=== PATIENT | female | born 1955 | race Caucasian/White ===

== ENCOUNTER → 2018-04-20 09:02 | Outpatient (CLI) | payer OTHER, SELFPAY ==
--- NOTE | 2018-04-20 | DI.CT.S_ITS ---
PROCEDURE: CT SINUS SCREEN WO CON INDICATIONS: CHRONIC SINUSITIS TECHNIQUE: Noncontrast 3.0 mm axial images acquired from the frontal sinuses to the mid-sella, with coronal and sagittal reformats. For radiation dose reduction, the following was used: automated exposure control, adjustment of mA and/or kV according to patient size. COMPARISON: None. FINDINGS: Image quality: Excellent. Maxillary Sinuses: No bony remodeling or destruction. Sinuses are clear. Ethmoid Air Cells: No bony remodeling or destruction. Sinuses are clear. Sphenoid Sinuses: No bony remodeling or destruction. Sinuses are clear. Frontal Sinuses: No bony remodeling or destruction. Sinuses are clear. Ostiomeatal Complexes: Ostiomeatal complexes are patent. No Adelita cells. Miscellaneous: Visualized intra-orbital contents are normal. No freda bullosa or paradoxical turbinate curvature. No nasal septal deviation. IMPRESSION: No active sinusitis. Dictated by: Benedicto Hinton M.D. on 04/20/2018 at 10:56 Approved by: Benedicto Hinton M.D. on 04/20/2018 at 10:57
== END ==
PROVIDERS: Visit Provider Otolaryngology
DX: J32.8 Other chronic sinusitis (principal); J34.89 Other specified disorders of nose and nasal sinuses; J34.2 Deviated nasal septum
CPT/HCPCS: 70486

== ENCOUNTER 2021-09-23 19:17 | Observation (INO) | payer OTHER, SELFPAY ==
[2021-09-23 19:27] VITALS: BP 161/83; PULSE 100; RESP 18; TEMP 36.6; O2SAT 95; BMI 36.6
--- NOTE | 2021-09-23 19:30 | DI.RAD.S_ITS ---
PROCEDURE: XR CHEST 1V INDICATIONS: chest pain TECHNIQUE: One view of the chest was acquired. COMPARISON: None. FINDINGS: Surgical changes and devices: None. Lungs and pleura: Lungs are clear. No pleural effusions or pneumothorax. Mediastinum: Mediastinal contours appear normal. Heart size is normal. Bones and chest wall: No suspicious bony lesions. Overlying soft tissues appear unremarkable. IMPRESSION: 1. No acute cardiopulmonary disease. Dictated by: Cullen Roldan M.D. on 09/23/2021 at 20:42 Approved by: Cullen Roldan M.D. on 09/23/2021 at 20:43
[2021-09-23 20:03] LABS: Add Manual Diff / Slide Review NO; Basophils Absolute Auto 0 /uL (0-100); Basophils Percent Auto 0.4 % (0-2); Eosinophils Absolute Auto 100 /uL (0-450); Eosinophils Percent Auto 1.6 % (2-4); Hematocrit 40.1 % (36-46); Hemoglobin 13.5 g/dL (12.0-16.0); Lymphocytes Absolute Auto 1400 /uL (1100-4500); Lymphocytes Percent Auto 31.5 % (25-40); Mean Corpuscular HGB Conc 33.8 % (30-36); Mean Corpuscular Hemoglobin 28.1 PG (26-34); Monocytes Absolute Auto 400 /uL (0-900); Monocytes Percent Auto 8.8 % (3-14); Neutrophils Absolute Auto 2600 /uL (1500-7000); Neutrophils Percent Auto 57.7 % (50-75); Platelet Count 184 X10^3/uL (150-400); Red Blood Cell Count 4.83 X10^6/uL (4.0-5.2); White Blood Cell Count 4.6 X10^3/uL (4.5-11.0)
--- NOTE | 2021-09-23 20:04 | ED_ITS ---
HPI - Chest Pain General Chief Complaint: Chest Pain Stated Complaint: sent for cardiac workup Time Seen by Provider: 09/23/21 19:52 Source: patient Mode of arrival: Ambulatory Limitations: no limitations History of Present Illness HPI narrative: Patient here for 2 days of left-sided chest pressure radiating to the left arm and arm pit. Has had diaphoresis. Greatest intensity 7/10. Currently 5/10. History of high blood pressure. Family history of coronary artery disease including grandmother with triple bypass at her age. Had stress test in early 1999. No recent cough cold or fever. No abdominal or back pain. Not worse with movement. Not reproducible on palpation Related Data Home Medications Medication Instructions Recorded Confirmed HYDROCHLOROTHIAZIDE (Hydrodiuril / 10 mg PO Q DAY ##0 08/31/09 09/23/21 Hctz) amlodipine 5 mg tablet 5 mg PO DAILY 09/23/21 09/23/21 celecoxib 200 mg capsule 200 mg PO DAILY 09/23/21 09/23/21 Previous Rx's Medication Instructions Recorded methocarbamol 500 mg tablet 500 mg PO BID PRN muscle spasm #10 01/05/21 tabs Allergies Allergy/AdvReac Type Severity Reaction Status Date / Time codeine AdvReac causes Verified 01/20/18 09:25 itching, hives and hyperactivity Sulfa (Sulfonamide AdvReac itching, Verified 01/20/18 09:25 Antibiotics) hives and hyperactivity Review of Systems Review of Systems Narrative: GENERAL: Denies chills, fatigue, malaise, fever, positive sweats. HEENT: Denies sinus pain, ear pain, sore throat RESPIRATORY: Denies dyspnea, cough CARDIOVASCULAR: Positive chest pain, negative palpitations GASTROINTESTINAL: Denies nausea, vomiting, abdominal pain : Denies dysuria, frequency, hematuria MUSCULOSKELETAL: denies muscle or bony pain SKIN: Denies rash, skin lesions NEUROLOGIC: Denies weakness, numbness ROS Unobtainable: All systems reviewed & are unremarkable except as noted in HPI and below Patient History Medical History Allergies Anemia (~1969) Ankle pain (~2019) Arthritis Asthma (~1986) Carpal tunnel syndrome (~1999) Chronic back pain (~2008) Colon polyps (~2004) Eczema (~1980) Foot pain (~2019) Hypertension (~2001) Recurrent sinusitis (~1994) Shoulder pain (~2008) Surgical History Anesthesia History of colonoscopy Family History Father Congestive heart failure Hypertension Hyperlipidemia Stroke History of heart attack Mother Cancer Brother Cancer Grandfather Cancer Grandmother Breast cancer Grandfather History of heart disease Grandmother History of heart disease Social History household members: spouse Smoking Status: Never smoker alcohol intake: never Smoking Status: Never smoker alcohol intake frequency: 0-2 drinks per day Substance Use Type: does not use Exam Narrative Exam Narrative: GENERAL: in no distress, not toxic not dyspneic HEAD: Normocephalic. EYES: Pupils equal round No scleral icterus. ENT: Mucous membranes moist. NECK: Trachea midline. CARDIOVASCULAR: Regular rate and rhythm without murmurs RESPIRATORY: Clear to auscultation. Breath sounds equal bilaterally. No wheezes, rales, or rhonchi. GASTROINTESTINAL: Abdomen soft, non-tender EXTREMITIES: No gross deformities. BACK: No flank tenderness. NEURO: AOx4. SKIN: Warm and dry PSYCH: Not anxious, is cooperative Initial Vital Signs Initial Vital Signs: Vital Signs Temperature 97.9 F 09/23/21 19:27 Pulse Rate 100 H 09/23/21 19:27 Respiratory Rate 18 09/23/21 19:27 Blood Pressure 161/83 H 09/23/21 19:27 Pulse Oximetry 95 09/23/21 19:27 Oxygen Delivery Method 09/23/21 19:27 Course Course Course Narrative: No new issues during course of stay Decision to Admit Date: 09/23/21 Decision to Admit time: 20:08 Orders Ordered: ED Orders 09/23/21 19:30 XR chest 1V Stat Complete Blood Count AUTO DIFF Stat Comprehensive Metabolic Panel Stat D Dimer Stat Lipase Stat Magnesium Stat NT-proBNP (BNP-Adult 18+) Urgent Troponin & CK Cardiac Panel Stat 09/23/21 19:32 EKG-12 Lead Stat 09/23/21 20:29 EC echo doppler complete Urgent Exercise treadmill NON NUC Urgent COVID19 -Nasal RAPID/Pre-Proc Stat 09/23/21 20:30 Education, smoking cessation ONGOING 09/23/21 20:38 Consult to Dietitian, Adult Routine 09/24/21 01:30 Troponin I Q6H 09/24/21 05:00 Lipid Panel Routine Prothrombin Time INR Routine 09/24/21 07:30 Troponin I Q6H Al Hydrox/Mg Hydrox/Simethicone (Mag Hydrox/Alum/Simeth 30 Ml Udc) 30 ml PO Q6HR PRN PRN Reason: Dyspepsia Aspirin (Aspirin Ec 325 Mg Tablet) 325 mg PO DAILY [facility] Enoxaparin Sodium (Enoxaparin 40 Mg/0.4 Ml Syringe) 40 mg SUBCUT DAILY [facility] Lisinopril (Lisinopril 20 Mg Tablet) 20 mg PO DAILY [facility] Methocarbamol (Methocarbamol 500 Mg Tablet) 500 mg PO BID PRN PRN Reason: muscle spasm Morphine Sulfate (Morphine 2 Mg/Ml Inj) 2 mg IV Q5MIN PRN PRN Reason: Chest Pain Nitroglycerin (Nitroglycerin 0.4 Mg Sl Tab) 0.4 mg SL [id number] PRN PRN Reason: Chest Pain Ondansetron HCl (Ondansetron 4 Mg/2 Ml Inj) 4 mg IV Q4HR PRN PRN Reason: Nausea And Vomiting Discontinued Medications Aspirin (Aspirin 81 Mg Chew Tab) 324 mg PO NOW ONE Stop: 09/23/21 20:05 Last Admin: 09/23/21 20:19 Dose: 324 mg Documented By: TANYA Metoprolol Tartrate (Metoprolol Tartrate 5 Mg/5 Ml Inj) 5 mg IV Q5M PRN PRN Reason: Hypertension Stop: 09/23/21 21:56 Nitroglycerin (Nitroglycerin Oint 1 Inch/Gm Oint...G.) 0.5 inch TOP NOW ONE Stop: 09/23/21 20:05 Last Admin: 09/23/21 20:19 Dose: 0.5 inch Documented By: TANYA Non-Formulary Medication (Hydrochlorothiazide (Hydrodiuril / Hctz)) 10 mg PO Q DAY [facility] Ondansetron HCl (Ondansetron 4 Mg/2 Ml Inj) 4 mg IV Q4HR PEÑA Last Admin: 09/23/21 22:31 Dose: Not Given Documented By: MORENITA Reevaluation(s) Reevaluation #1: Reviewed results with patient. Currently chest pain free Consultations Consultation #1: Reviewed with hospitalist, agrees for admit. Time: 20:45 Vital Signs Vital signs: Vital Signs - 8 hr 09/23/21 19:27 09/23/21 20:27 09/23/21 20:32 Temperature 97.9 F Pulse Rate 100 H 88 Respiratory Rate 18 16 Blood Pressure 161/83 H 181/85 H Pulse Oximetry 95 99 98 Oxygen Delivery Method Room Air Room Air Room Air MDM - Chest Pain Differential Diagnosis Differential diagnosis: Likely stable angina, unstable angina pectoris, atypical chest pain, st elevation myocardial infarction and chest pain Lab Data Result diagrams: 09/23/21 19:30 09/23/21 19:30 Labs: Lab Results 09/23/21 09/23/21 09/23/21 Range/Units 19:30 19:30 19:30 WBC 4.6 (4.5-11.0) X10^3/uL RBC 4.83 (4.0-5.2) X10^6/uL Hgb 13.5 (12.0-16.0) g/dL Hct 40.1 (36-46) % MCV 83.0 (80-100) fL MCH 28.1 (26-34) PG MCHC 33.8 (30-36) % RDW 14.0 (11.6-14.8) % Plt Count 184 (150-400) X10^3/uL Neut % (Auto) 57.7 (50-75) % Lymph % (Auto) 31.5 (25-40) % [place] % (Auto) 8.8 (3-14) % Eos % (Auto) 1.6 L (2-4) % Baso % (Auto) 0.4 (0-2) % Neut # (Auto) 2600 (3978-9545) /uL Lymph # (Auto) 1400 (2800-3942) /uL [place] # (Auto) 400 (0-900) /uL Eos # (Auto) 100 (0-450) /uL Baso # (Auto) 0 (0-100) /uL D-Dimer < 500 (<500) ng/ml Sodium 138 (137-145) mmol/L Potassium 3.4 (3.4-5.1) mmol/L Chloride 101 (98-107) mmol/L Carbon Dioxide 31 (22-32) mmol/L BUN 16 (7-17) mg/dL Creatinine 0.78 (0.52-1.04) mg/dL Estimated GFR > 60 (>60) mL/min BUN/Creatinine Ratio 20.5 (6-22) Glucose 139 H (80-110) mg/dL Calcium 9.3 (8.4-10.2) mg/dL Magnesium 1.8 (1.6-2.3) mg/dL Total Bilirubin 0.7 (0.2-1.3) mg/dL AST 63 H (14-36) IU/L ALT 70 H (<35) IU/L Alkaline Phosphatase 102 (38-126) U/L Total Creatine Kinase 50 (30-135) U/L CK-MB (CK-2) TNP CK-MB (CK-2) Rel Index TNP Troponin I < 0.012 (0.01-0.034) ng/mL NT-Pro-B Natriuret Pep (<125) pg/mL Total Protein 7.9 (6.3-8.2) g/dL Albumin 4.3 (3.5-5.0) g/dL Globulin 3.6 (1.7-4.1) g/dL Albumin/Globulin Ratio 1.2 (1.0-2.8) Lipase 61 (23-300) U/L SARS-CoV-2 (PCR) (Negative) 09/23/21 09/23/21 Range/Units 19:30 20:29 WBC (4.5-11.0) X10^3/uL RBC (4.0-5.2) X10^6/uL Hgb (12.0-16.0) g/dL Hct (36-46) % MCV (80-100) fL MCH (26-34) PG MCHC (30-36) % RDW (11.6-14.8) % Plt Count (150-400) X10^3/uL Neut % (Auto) (50-75) % Lymph % (Auto) (25-40) % [place] % (Auto) (3-14) % Eos % (Auto) (2-4) % Baso % (Auto) (0-2) % Neut # (Auto) (3531-6616) /uL Lymph # (Auto) (6085-9276) /uL [place] # (Auto) (0-900) /uL Eos # (Auto) (0-450) /uL Baso # (Auto) (0-100) /uL D-Dimer (<500) ng/ml Sodium (137-145) mmol/L Potassium (3.4-5.1) mmol/L Chloride (98-107) mmol/L Carbon Dioxide (22-32) mmol/L BUN (7-17) mg/dL Creatinine (0.52-1.04) mg/dL Estimated GFR (>60) mL/min BUN/Creatinine Ratio (6-22) Glucose (80-110) mg/dL Calcium (8.4-10.2) mg/dL Magnesium (1.6-2.3) mg/dL Total Bilirubin (0.2-1.3) mg/dL AST (14-36) IU/L ALT (<35) IU/L Alkaline Phosphatase (38-126) U/L Total Creatine Kinase (30-135) U/L CK-MB (CK-2) CK-MB (CK-2) Rel Index Troponin I (0.01-0.034) ng/mL NT-Pro-B Natriuret Pep 26 (<125) pg/mL Total Protein (6.3-8.2) g/dL Albumin (3.5-5.0) g/dL Globulin (1.7-4.1) g/dL Albumin/Globulin Ratio (1.0-2.8) Lipase (23-300) U/L SARS-CoV-2 (PCR) Negative (Negative) Imaging Data Chest x-ray: Radiologist's Impression: [address] [address] XRay Report Signed Patient: Sandra Iraheta MR#: [id number] : 1955 Acct:[id number] Age/Sex: 66 / F Date of Service: 09/23/21 Loc: 90C-1 Accession Number: [id number] ?? Procedure: XR chest 1V Ordering Provider: Ryland Greenberg MD PROCEDURE:? XR CHEST 1V ? INDICATIONS:? chest pain ? TECHNIQUE:? One view of the chest was acquired.? ? COMPARISON:? None. ? FINDINGS:? ? Surgical changes and devices:? None.? ? Lungs and pleura:? Lungs are clear.? No pleural effusions or pneumothorax.? ? Mediastinum:? Mediastinal contours appear normal.? Heart size is normal.? ? Bones and chest wall:? No suspicious bony lesions.? Overlying soft tissues appear unremarkable.? ? IMPRESSION:? ? 1.? No acute cardiopulmonary disease. ? ? ? Dictated by: Cullen Roldan M.D. on 09/23/2021 at 20:42 ? ? Approved by: Cullen Roldan M.D. on 09/23/2021 at 20:43 ? ECG Data Interpretation: Sinus tachycardia rate [address] elevation or depression MDM Narrative Medical decision making narrative: Appropriate for admission. Patient agrees for admit for stress test and echocardiogram. Review with hospitalist and agrees for admit. Discharge Plan Departure Patient Disposition: Admitted As Inpatient Clinical Impression: Chest pain Admit Date/Time: 09/23/21 20:39 Admit Provider: Alyssia Honeycutt
[2021-09-23 20:10] LABS: Alanine Aminotransferase 70 IU/L (<35); Albumin 4.3 g/dL (3.5-5.0); Albumin Globulin Ratio 1.2 (1.0-2.8); Alkaline Phosphatase 102 U/L (38-126); Aspartate Aminotransferase 63 IU/L (14-36); BUN Creatinine Ratio 20.5 (6-22); Bilirubin Total 0.7 mg/dL (0.2-1.3); Blood Urea Nitrogen 16 mg/dL (7-17); Calcium 9.3 mg/dL (8.4-10.2); Carbon Dioxide 31 mmol/L (22-32); Chloride 101 mmol/L (98-107); Creatine Kinase 50 U/L (30-135); Estimated Glomerular Filt Rate > 60 mL/min (>60); Globulin 3.6 g/dL (1.7-4.1); Glucose 139 mg/dL (80-110); HEMOLYSIS < 15 (0-50); Lipase 61 U/L (23-300); Magnesium 1.8 mg/dL (1.6-2.3); Potassium 3.4 mmol/L (3.4-5.1); Sodium 138 mmol/L (137-145); Total Protein 7.9 g/dL (6.3-8.2)
[2021-09-23] MEDS: NITROGLYCERIN OINT 1 INCH/GM OINT...G. 0.5 INCH TOP (20:19)
[2021-09-23] MEDS: ASPIRIN 81 MG CHEW TAB 324 MG PO (20:19)
[2021-09-23 20:21] LABS: D Dimer < 500 ng/ml (<500); Troponin I < 0.012 ng/mL (0.01-0.034)
[2021-09-23 20:27] VITALS: BP 181/85; PULSE 88; RESP 16; O2SAT 99
--- NOTE | 2021-09-23 20:29 | DI.ECHO.S_ITS ---
[place] [facility]---------+ [facility] +---------+ : : [address] : : : : [id number] : : : : Phone: [phone] Echocardiogram Report + + :Name: HEATHER RAMIREZ Study Date: 09/24/2021 Height: 65 in : :[facility] ReadingLocation: Weight: 220 lb : : Gender: Female BSA: 2.1 m2 : :: 1955 Age: 66 yrs BP: 156/88 mmHg: :Reason For Study: CHEST PAIN : :Ordering Physician: SYLVIA, : :ELINOR Performed By: Ora Topete : :Referring: ELINOR WARD : + + Interpretation Summary The left ventricle is normal in size. There is mild concentric left ventricular hypertrophy. The ejection fraction is estimated to be 55-60%. The right ventricle is normal in size and function. No significant valvular pathology seen. Procedure: A two-dimensional transthoracic echocardiogram with color flow and Doppler was performed. The study quality was technically adequate. There is no prior echocardiogram noted for this patient. The patient was in sinus rhythm with heart rates between 89-93 bpm during the exam. Left Ventricle: The left ventricle is normal in size. There is mild concentric left ventricular hypertrophy. There is no thrombus. A false chord is noted (normal variant). The ejection fraction is estimated to be 55-60%. There are no focal wall motion abnormalities. Diastolic function could not be accurately assessed due to unobtainable data. Right Ventricle: The right ventricle is normal in size and function. Atria: The left atrial size is normal. Right atrial size is normal. There is no Doppler evidence for an interatrial shunt. Mitral Valve: There is mild mitral annular calcification. There is trace mitral regurgitation. Aortic Valve: The aortic valve is trileaflet. The aortic valve opens well. There is no aortic valve stenosis. No aortic regurgitation is present. Tricuspid Valve: The tricuspid valve is normal in structure and function. Pulmonary artery pressures cannot be estimated because of the lack of a measurable TR jet velocity. There is trace tricuspid regurgitation. Pulmonic Valve: The pulmonic valve leaflets are thin and pliable; valve motion is normal. There is no pulmonic valvular regurgitation. Great Vessels: The aortic root is normal size. The dimensions of the ascending aorta are normal. The inferior vena cava was not visualized. Pericardium/ Pleura There is no pericardial effusion. There is an anterior echo-free space consistent with a fat pad. There is no pleural effusion. MMode/2D Measurements & Calculations LVIDd: 4.8 cm LVOT diam: 2.0 cm LVIDs: 3.2 cm Ao root diam: 3.1 cm FS: 33.0 % asc Aorta Diam: 3.6 cm IVSd: 1.0 cm Ao Arch Diam (Prox Trans): 2.9 cm LVPWd: 1.3 cm LV fitzpatrick. diameter/BSA (cm/m^2): 2.3 LV sys. diameter/BSA (cm/m^2): 1.6 LA A2 area: 20.5 cm2 RA long axis: 5.5 cm LA A4 area: 21.3 cm2 RA area: 19.0 cm2 LA length (vol): 6.1 cm RA vol: 56.2 ml LA vol: 61.2 ml RA : 27.3 ml/m2 LA vol index: 29.7 ml/m2 RVD1 (basal): 3.8 cm RVD2 (mid): 3.4 cm TAPSE: 2.4 cm Doppler Measurements & Calculations Ao V2 max: 151.8 cm/sec LVOT Max Jarrod: 85.0 cm/sec Ao V2 mean: 107.3 cm/sec LV V1 max P.9 mmHg Ao max P.2 mmHg LV V1 VTI: 15.7 cm Ao mean P.2 mmHg RANDALL(I,D): 1.9 cm2 Ao V2 VTI: 25.7 cm RANDALL(V,D): 1.7 cm2 sev ratio: 0.61 RANDALL indexed to BSA (cm^2/m^2): 0.93 Med Peak E' Jarrod: 6.1 cm/sec PA V2 max: 109.0 cm/sec PA V2 mean: 73.7 cm/sec PA mean P.5 mmHg PA pr(Accel): 54.6 mmHg SV(LVOT): 49.2 ml Reading Physician:01:06 PM
[2021-09-23 20:32] VITALS: O2SAT 98
[2021-09-23 20:50] VITALS: BP 181/95; PULSE 88
[2021-09-23 21:00] LABS: COVID19 -Nasal RAPID Negative (Negative)
[2021-09-23 21:02] VITALS: BP 200/96; PULSE 87; RESP 16; O2SAT 98
[2021-09-23 21:18] LABS: NT-proBNP (BNP-Adult 18+) 26 pg/mL (<125)
[2021-09-23 21:23] VITALS: BMI 36.6
[2021-09-23 21:30] VITALS: BP 156/88; PULSE 93; RESP 19; TEMP 36.3; O2SAT 98
--- NOTE | 2021-09-23 21:41 | DI.NM.S_ITS ---
PROCEDURE: NM JONA PERF SPECT REST & STR Rest and exercise myocardial perfusion SPECT with gated imaging and ejection fraction RADIOPHARMACEUTICAL: 25.7 mCi Tc-99m sestamibi IV at rest and 27.2 mCi Tc-99m sestamibi IV at peak exercise. A [id number] was performed. INDICATIONS: CP HTN urgency TECHNIQUE: Radiopharmaceutical was injected at peak stress test, and also at rest. SPECT images were obtained. SPECT myocardial perfusion images were displayed in short axis, horizontal long axis, and vertical long axis views. Gated images were reviewed using Elevaate software. COMPARISON: None. CARDIAC STRESS: A standard Ronaldo treadmill exercise tolerance test was performed by the patient under the supervision of an attending staff. The patient exercised for 6 minutes and 0 seconds; 6.1 METS; functional aerobic impairment (MERCEDES) is +3%. Hemodynamic data: Patient achieved 105 of maximum predicted heart rate at peak exercise however heart rate acceleration was rapid. Maximum blood pressure 200/90. Symptoms: Patient denied chest pain during exercise. EKG: No diagnostic EKG changes of ischemia; no ectopy. FINDINGS: Raw data: There is good myocardial labeling by radiotracer. No significant motion artifacts. Mgmp-ka-mrekr ratio is 0.42 (normal is less than 0.38 for sestamibi tracer, and less than 0.50 for thallium tracer). Left ventricle function: Gated images demonstrate normal left ventricle wall thickening. No segmental wall motion abnormality. No transient ischemic dilation; TID is 1.0 (normal less than 1.3). The left ventricle resting end-diastolic volume is 113 mL. Left ventricle stress ejection fraction is 64%; normal values are above 45%. Myocardial perfusion: There is normal distribution of activity in the left and right ventricular myocardium. No fixed or reversible perfusion defects. IMPRESSION: Low risk study. No evidence of exercise-induced ischemia on ECG or SPECT imaging. Accelerated heart rate response and elevated blood pressure with exercise. Fair exercise capacity. Dictated by: Alicia Simmons D.O. on 09/25/2021 at 16:27 Approved by: Alicia Simmons D.O. on 09/25/2021 at 16:32
[2021-09-23 22:45] VITALS: BMI 36.6
[2021-09-24] VITALS (12 sets, daily range): BP systolic 132–156; BP diastolic 69–82; PULSE 84–99; RESP 18–20; TEMP 36.2–36.8; O2SAT 94–99
[2021-09-24 01:55] LABS: Cholesterol 166 mg/dL (140-199); HDL Cholesterol 28 mg/dL (40-60); LDL Cholesterol Calculated 87 mg/dL (<100); Triglycerides 253 mg/dL (35-150)
[2021-09-24 01:58] LABS: INR 1.1 (0.9-1.3); Prothrombin Time 12.3 SECONDS (10.1-12.7)
--- NOTE | 2021-09-24 02:22 | PM.HP.1 ---
History of Present Illness History of Present Illness Date Patient Seen: 09/23/21 Time Patient Seen: 20:44 Chief complaint: sent for cardiac workup Narrative: Sandra Iraheta is a 66-year-old female with a medical history hypertension, arthritis, obesity, chronic back pain, arthritis, cataracts who presented to the ED today following the development of chest pain that started 4 days ago to the left side of her chest 4th 5th 6th intercostal spaces radiating to the left armpit and down the left arm, it is described as an achy pressure, she has had episodes diaphoresis, no shortness of breath, no changes in vision, had a headache all day yesterday, stress makes it worse, activity does not, rest does improve it. She does have swelling of her lower extremities specifically her feet but has not changed no swelling onset to her hands, denies numbness, tingling, balance or coordination issues, difficulty with speech, difficulty swallowing, upper respiratory symptoms, cough, fever, body aches, chills, abdominal pain, nausea, vomiting, diarrhea, recent illness, injury, trauma, or falls. The patient's chest pain resolved following nitro paste in the ED, though her blood pressure continued to increase, initially her blood pressure was 193/91 during admit exam in the ED patient's blood pressure was 200/96. Patient advised that she had not been taking her blood pressure medication for the past 3 weeks, and had only taken a dose today. Patient has had chronic back pain, and significant arthritis issues in the left ankle and left hip which have decreased her mobility, contributing to decreasing weight gain. Patient has a significant family history for coronary artery disease stroke, and bypass. Last stress test in 1999. Admit exam done in ED patient is calm relax in no distress and no shortness of breath chest pain has resolved. Vitals temp 97.9?, initial blood pressure 161/83 but then escalated to 200/96, HR 100, RR 18, O2 saturation 95% on room air. Patient's CBC and CMP with the exception of a glucose 139, AST 63 ALT 70, initial troponin and lipase are WNL. Patient's EKG sinus tachycardia at a rate of [address] or T-wave changes. Heart score: 4, patient's chest x-ray is negative for any acute cardiopulmonary process. Patient admitted for chest pain with hypertensive urgency. Patient History Medical History Allergies Anemia (~1969) Ankle pain (~2019) Arthritis Asthma (~1986) Carpal tunnel syndrome (~1999) Chronic back pain (~2008) Colon polyps (~2004) Eczema (~1980) Foot pain (~2019) Hypertension (~2001) Recurrent sinusitis (~1994) Shoulder pain (~2008) Surgical History Anesthesia History of colonoscopy Family & Social History Family History Father Congestive heart failure Hypertension Hyperlipidemia Stroke History of heart attack Mother Cancer Brother Cancer Grandfather Cancer Grandmother Breast cancer Grandfather History of heart disease Grandmother History of heart disease Social History: household members spouse 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 Safety & Behavioral: Feels Safe in Current Yes Environment Been Physically Hurt or No Threatened By a Person Tobacco & Substance use: Smoking Status Never smoker alcohol intake never alcohol intake frequency 0-2 drinks per day Substance Use Type does not use Meds Home Medications and Allergies Home Medications Medication Instructions Recorded Confirmed Type HYDROCHLOROTHIAZIDE (Hydrodiuril / 10 mg PO Q DAY ##0 08/31/09 09/23/21 History Hctz) methocarbamol 500 mg tablet 500 mg PO BID PRN muscle spasm #10 01/05/21 09/23/21 Rx tabs amlodipine 5 mg tablet 5 mg PO DAILY 09/23/21 09/23/21 History celecoxib 200 mg capsule 200 mg PO DAILY 09/23/21 09/23/21 History Allergies Allergy/AdvReac Type Severity Reaction Status Date / Time codeine AdvReac causes Verified 01/20/18 09:25 itching, hives and hyperactivity Sulfa (Sulfonamide AdvReac itching, Verified 01/20/18 09:25 Antibiotics) hives and hyperactivity Review of Systems Review of Systems Narrative: All 12 point systems reviewed with the patient and are negative except otherwise documented. Exam Vital Signs (past 8 hours): - 09/23/21 19:27 09/23/21 20:27 09/23/21 20:50 Temperature 97.9 F Pulse Rate 100 H 88 88 Respiratory Rate 18 16 Blood Pressure 161/83 H 181/85 H 181/95 H Pulse Oximetry 95 99 Oxygen Delivery Method Room Air Room Air Oxygen Flow Rate 09/23/21 21:02 09/23/21 21:30 09/23/21 20:32 Temperature 97.3 F L Pulse Rate 87 93 H Respiratory Rate 16 19 Blood Pressure 200/96 H 156/88 H Pulse Oximetry 98 98 98 Oxygen Delivery Method Room Air Room Air Oxygen Flow Rate 0 09/23/21 20:43 09/24/21 01:00 Temperature 97.8 F Pulse Rate 99 H Respiratory Rate 18 Blood Pressure 132/69 Pulse Oximetry 95 Oxygen Delivery Method Room Air Oxygen Flow Rate 0 Oxygen Delivery Method Room Air Oxygen Flow Rate 0 Narrative Exam Narrative: General: Patient is a well-developed, well-nourished delightful obese female, in no distress at this time. HEENT: Normocephalic, atraumatic, extraocular muscles intact, oral pharynx is clear and mucous membranes are moist. Neck is supple and symmetric, trachea is midline, no adenopathy, no thyroid enlargement, nontender, no masses palpated. Negative for JVD Chest: Normal AP diameter and contour without kyphoscoliosis, no nasal flaring, retractions, or tachypneic labored Lungs: Auscultation of all lung petty are clear without adventitious sounds, wheezes, rhonchi, or rales. Cardio: S1 & S2 with slightly tachycardic regular rate and rhythm without murmur, rubs, or gallops, no carotid bruit, no cardiac pulsations present. Abdomen: Soft nontender, negative for organomegaly, or masses. Bowel sounds are present in all 4 quadrants without guarding or rebound, no CVA tenderness. Musculoskeletal: Muscle strength and tone are equal within normal limits, no deformity, crepitus, effusions, cyanosis, clubbing or edema present. Full range of motion intact radial and pedal pulses are normal. Skin: Warm dry and intact without rashes, ulcerations or petechiae. Neuro: Alert and orientated x3, strength is +5/5 in all extremities, sensation to touch intact, no gross deficits noted of cranial nerves. Psych: Patient has a well-kept appearance, appropriate affect, mental status attitude thought context and judgment are appropriate for age. Objective Labs Result Diagrams: 09/23/21 19:30 09/23/21 19:30 Labs: Laboratory Results - last 24 hr 09/23/21 09/23/21 09/23/21 19:30 19:30 19:30 WBC 4.6 RBC 4.83 Hgb 13.5 Hct 40.1 MCV 83.0 MCH 28.1 MCHC 33.8 RDW 14.0 Plt Count 184 Neut % (Auto) 57.7 Lymph % (Auto) 31.5 [place] % (Auto) 8.8 Eos % (Auto) 1.6 L Baso % (Auto) 0.4 Neut # (Auto) 2600 Lymph # (Auto) 1400 [place] # (Auto) 400 Eos # (Auto) 100 Baso # (Auto) 0 PT INR D-Dimer < 500 Sodium 138 Potassium 3.4 Chloride 101 Carbon Dioxide 31 BUN 16 Creatinine 0.78 Estimated GFR > 60 BUN/Creatinine Ratio 20.5 Glucose 139 H Calcium 9.3 Magnesium 1.8 Total Bilirubin 0.7 AST 63 H ALT 70 H Alkaline Phosphatase 102 Total Creatine Kinase 50 CK-MB (CK-2) TNP CK-MB (CK-2) Rel Index TNP Troponin I < 0.012 NT-Pro-B Natriuret Pep Total Protein 7.9 Albumin 4.3 Globulin 3.6 Albumin/Globulin Ratio 1.2 Triglycerides Cholesterol LDL Cholesterol, Calc HDL Cholesterol Lipase 61 SARS-CoV-2 (PCR) 09/23/21 09/23/21 09/24/21 19:30 20:29 01:35 WBC RBC Hgb Hct MCV MCH MCHC RDW Plt Count Neut % (Auto) Lymph % (Auto) [place] % (Auto) Eos % (Auto) Baso % (Auto) Neut # (Auto) Lymph # (Auto) [place] # (Auto) Eos # (Auto) Baso # (Auto) PT 12.3 INR 1.1 D-Dimer Sodium Potassium Chloride Carbon Dioxide BUN Creatinine Estimated GFR BUN/Creatinine Ratio Glucose Calcium Magnesium Total Bilirubin AST ALT Alkaline Phosphatase Total Creatine Kinase CK-MB (CK-2) CK-MB (CK-2) Rel Index Troponin I NT-Pro-B Natriuret Pep 26 Total Protein Albumin Globulin Albumin/Globulin Ratio Triglycerides Cholesterol LDL Cholesterol, Calc HDL Cholesterol Lipase SARS-CoV-2 (PCR) Negative 09/24/21 01:35 WBC RBC Hgb Hct MCV MCH MCHC RDW Plt Count Neut % (Auto) Lymph % (Auto) [place] % (Auto) Eos % (Auto) Baso % (Auto) Neut # (Auto) Lymph # (Auto) [place] # (Auto) Eos # (Auto) Baso # (Auto) PT INR D-Dimer Sodium Potassium Chloride Carbon Dioxide BUN Creatinine Estimated GFR BUN/Creatinine Ratio Glucose Calcium Magnesium Total Bilirubin AST ALT Alkaline Phosphatase Total Creatine Kinase CK-MB (CK-2) CK-MB (CK-2) Rel Index Troponin I NT-Pro-B Natriuret Pep Total Protein Albumin Globulin Albumin/Globulin Ratio Triglycerides 253 H Cholesterol 166 LDL Cholesterol, Calc 87 HDL Cholesterol 28 L Lipase SARS-CoV-2 (PCR) Assessment & Plan Assessment & Plan narrative: Sandra Iraheta is a 66-year-old female with a medical history hypertension, obesity, chronic back pain, arthritis, and cataracts who presented to the ED today following the development of chest pain that started 4 days ago to the left side of her chest 4th 5th 6th intercostal spaces radiating to the left armpit and down the left arm, elevated B/P, and a significant family history for coronary artery disease, stroke, and bypass. Last stress test in 1999. 1. Chest pain with radiation to the left arm, acute, present on admission -patient is stable in no distress. -EKG demonstrates sinus tachycardia rate [address] or T-wave changes -initial troponin negative- trend troponin x 3, Heart Score: 4 -ASA, MS, Nitro for pain control, BNP, Lipids, A1C - metoprolol 5 mg IV PRN Q15min for SBP>180, DBP>100, or HR>110 for >15min -Telemetry -Echo & stress ordered 2. Hypertensive urgency in the setting of essential hypertension, uncontrolled, acute on chronic, present on admission -patient had not taken her blood pressure medication for 3 weeks, she also notes that the Hydrodiuril/HCTZ was causing worsening lower extremity edema. -Changing medication to lisinopril 20mg to start tomorrow- Patient education provided regarding taking medication consistently. - initial blood pressure 161/83 but then escalated to 200/96 -given metoprolol upon admit to the unit BP now 132/69 3. Obesity as evidence by BMI of 36.6, acute on chronic, present on admission -dietary consult placed for nutritional lifestyle weight loss recommendation -provided patient education regarding water exercise for weight loss and cardiovascular health 4. Chronic low back pain, chronic, present on admission -continue Robaxin Code status:Full Surrogate decision maker: Karel GRISSOM PCR:Negative DVT/VTE prophylaxis: Lovenox and SCDs Disposition: Patient admitted for observation chest pain rule out risk stratification, expected length of stay less than 2 midnights. I have utilized all available immediate resources to obtain, update, or review the patient's current medications. I confirmed that the patient's advanced care plan is present, Code status is documented and/or surrogate decision maker is listed in the patient's medical record. Time Spent With Patient Critical Care time: I spent a total of [] minutes of critical care time on this patient's care today; this time is exclusive of procedural time. Quality VTE Deep Vein Thrombosis/Pulmonary Embolism Present on Admission: No
[2021-09-24 02:39] LABS: Troponin I < 0.012 ng/mL (0.01-0.034)
[2021-09-24 09:07] LABS: Troponin I < 0.012 ng/mL (0.01-0.034)
--- NOTE | 2021-09-24 09:19 | CM.DANOTE ---
DCP Assessment: Payor: Cherry PCP: Ed Ortiz. Used to be Dr. Thomas, but has left the practice. Pt is a 66 y.o. F who presented to the ED with left-sided chest pressure that is radiating to the L arm and arm pit. Pt has a PMH of hypertension. Pt admitted as inpatient for a stress test and echocardiogram. DCP met with the pt this morning to discuss discharge needs. Pt sitting up on the side of the bed eating breakfast. DCP introduced herself and role. Pt states that she lives in [place] with her spouse, Rafy, in a 2 story house. 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 Pt states that she currently drives POV and denies any DME use. Pt states that she is to have a stress test @ 1100 this morning. Pt states that the MD told her that if the test comes back negative, she would be able to discharge home today. Pt denies any discharge needs. DCP does not identify any discharge needs for pt at this time. Whiteboard updated and instructed to call if any other questions or concerns arise. P: Pt to have stress test @ 1100. If clear, pt can discharge home via POV. Dayna Rachel RN/BIN Discharge Planning/Care Management CM Discharge Assessment Start: 09/24/21 08:39 Freq: Status: Active Protocol: Document 09/24/21 08:40 MARISOL (Rec: 09/24/21 08:41 MARISOL [id number]) Discharge Planning Assessment Assigned Electrolog Operator Dayna Rachel RN/BIN Advance Directives? No History Provided By Patient,Medical Record Prior Living Arrangements House Household Members spouse Type of transporation used prior to Drives own vehicle admit Independent with ADL's Yes Is patient alert and oriented? Yes Caregiver for Another No Discharge Plan Home Transportation Arrangement Spouse POV Referrals Initiated None needed Whiteboard Updated in Patient Room with Yes name and ext. # of Electrolog Operator Comment Instructed to call Review Status In Process Please Provide Date Initial DC 09/24/21 Assessment Was Performed Next Review Type Continued Stay Review
[2021-09-24] MEDS: lisinopriL 20 MG TABLET PO (09:57)
[2021-09-24] MEDS: ENOXAPARIN 40 MG/0.4 ML SYRINGE SUBCUT (09:58)
[2021-09-24] MEDS: ASPIRIN EC 325 MG TABLET PO (09:58)
[2021-09-24] MEDS: methocarbamoL 500 MG TABLET PO (14:09)
[2021-09-24] MEDS: CELECOXIB 200 MG CAPSULE PO (15:55)
--- NOTE | 2021-09-24 16:10 | PM.PN.1 ---
Subjective Subjective Date Patient Seen: 09/24/21 Interval history: Continues to have mild left upper chest and arm pain today, though her arm discomfort is improved. Not much help with medications thus far. Had resting portion of stress test today, stress portion tomorrow. No palpitations, diaphoresis, nausea, or vomiting. Exam Vital Signs (past 8 hours): - 09/24/21 08:34 09/24/21 09:00 09/24/21 09:57 Temperature 98.0 F Pulse Rate 95 H 95 H Respiratory Rate 20 Blood Pressure 156/82 H 156/82 H Pulse Oximetry 95 98 Oxygen Delivery Method Room Air Oxygen Flow Rate 0 09/24/21 12:30 09/24/21 12:00 09/24/21 16:03 Temperature 97.9 F Pulse Rate 88 Respiratory Rate 18 Blood Pressure 138/72 Pulse Oximetry 98 98 98 Oxygen Delivery Method Room Air Room Air Oxygen Flow Rate 0 Oxygen Delivery Method Room Air Oxygen Flow Rate 0 Narrative Exam Narrative: Gen: No acute distress, grabbing at left shoulder area frequently. CV: RRR Pulm: no respiratory distress, equal chest rise bilaterally Ext: No edema or joint effusions Objective Labs Result Diagrams: 09/23/21 19:30 09/23/21 19:30 Labs: Laboratory Results - last 24 hr 09/23/21 09/23/21 09/23/21 19:30 19:30 19:30 WBC 4.6 RBC 4.83 Hgb 13.5 Hct 40.1 MCV 83.0 MCH 28.1 MCHC 33.8 RDW 14.0 Plt Count 184 Neut % (Auto) 57.7 Lymph % (Auto) 31.5 [place] % (Auto) 8.8 Eos % (Auto) 1.6 L Baso % (Auto) 0.4 Neut # (Auto) 2600 Lymph # (Auto) 1400 [place] # (Auto) 400 Eos # (Auto) 100 Baso # (Auto) 0 PT INR D-Dimer < 500 Sodium 138 Potassium 3.4 Chloride 101 Carbon Dioxide 31 BUN 16 Creatinine 0.78 Estimated GFR > 60 BUN/Creatinine Ratio 20.5 Glucose 139 H Calcium 9.3 Magnesium 1.8 Total Bilirubin 0.7 AST 63 H ALT 70 H Alkaline Phosphatase 102 Total Creatine Kinase 50 CK-MB (CK-2) TNP CK-MB (CK-2) Rel Index TNP Troponin I < 0.012 NT-Pro-B Natriuret Pep Total Protein 7.9 Albumin 4.3 Globulin 3.6 Albumin/Globulin Ratio 1.2 Triglycerides Cholesterol LDL Cholesterol, Calc HDL Cholesterol Lipase 61 SARS-CoV-2 (PCR) 09/23/21 09/23/21 09/24/21 19:30 20:29 01:35 WBC RBC Hgb Hct MCV MCH MCHC RDW Plt Count Neut % (Auto) Lymph % (Auto) [place] % (Auto) Eos % (Auto) Baso % (Auto) Neut # (Auto) Lymph # (Auto) [place] # (Auto) Eos # (Auto) Baso # (Auto) PT INR D-Dimer Sodium Potassium Chloride Carbon Dioxide BUN Creatinine Estimated GFR BUN/Creatinine Ratio Glucose Calcium Magnesium Total Bilirubin AST ALT Alkaline Phosphatase Total Creatine Kinase CK-MB (CK-2) CK-MB (CK-2) Rel Index Troponin I < 0.012 NT-Pro-B Natriuret Pep 26 Total Protein Albumin Globulin Albumin/Globulin Ratio Triglycerides Cholesterol LDL Cholesterol, Calc HDL Cholesterol Lipase SARS-CoV-2 (PCR) Negative 09/24/21 09/24/21 09/24/21 01:35 01:35 08:18 WBC RBC Hgb Hct MCV MCH MCHC RDW Plt Count Neut % (Auto) Lymph % (Auto) [place] % (Auto) Eos % (Auto) Baso % (Auto) Neut # (Auto) Lymph # (Auto) [place] # (Auto) Eos # (Auto) Baso # (Auto) PT 12.3 INR 1.1 D-Dimer Sodium Potassium Chloride Carbon Dioxide BUN Creatinine Estimated GFR BUN/Creatinine Ratio Glucose Calcium Magnesium Total Bilirubin AST ALT Alkaline Phosphatase Total Creatine Kinase CK-MB (CK-2) CK-MB (CK-2) Rel Index Troponin I < 0.012 NT-Pro-B Natriuret Pep Total Protein Albumin Globulin Albumin/Globulin Ratio Triglycerides 253 H Cholesterol 166 LDL Cholesterol, Calc 87 HDL Cholesterol 28 L Lipase SARS-CoV-2 (PCR) [facility] Medical History Allergies Anemia (~1969) Ankle pain (~2019) Arthritis Asthma (~1986) Carpal tunnel syndrome (~1999) Chronic back pain (~2008) Colon polyps (~2004) Eczema (~1980) Foot pain (~2019) Hypertension (~2001) Recurrent sinusitis (~1994) Shoulder pain (~2008) Surgical History Anesthesia History of colonoscopy Family History Father Congestive heart failure Hypertension Hyperlipidemia Stroke History of heart attack Mother Cancer Brother Cancer Grandfather Cancer Grandmother Breast cancer Grandfather History of heart disease Grandmother History of heart disease Social History household members: spouse Smoking Status: Never smoker alcohol intake: never Assessment & Plan Assessment & Plan narrative: Sandra Iraheta is a 66-year-old female with a medical history hypertension, obesity, chronic back pain, arthritis, and cataracts who presented to the ED today following the development of chest pain that started 4 days ago to the left side of her chest 4th 5th 6th intercostal spaces radiating to the left armpit and down the left arm, elevated B/P, and a significant family history for coronary artery disease, stroke, and bypass. Last stress test in 1999. 1. Chest pain with radiation to the left arm, acute, present on admission -troponins negative. EKG reassuring with no obvious signs of ischemia. -pending stress portion of nuclear study tomorrow. -TTE with EF 55-60% and LVH, no WMA. 2. Hypertensive urgency in the setting of essential hypertension, uncontrolled, acute on chronic, present on admission -patient had not taken her blood pressure medication for 3 weeks, she also notes that the amlodipine was causing worsening lower extremity edema. -change home medication to losartan given swelling issues with amlodipine. Continue to adjust as needed. -given improved BP today, hold home HCTZ for now (25 mg). Can restart on discharge depending on BP tomorrow in response to Losartan 50 mg. 3. Obesity as evidence by BMI of 36.6, acute on chronic, present on admission -dietary consult placed for nutritional lifestyle weight loss recommendation -provided patient education regarding water exercise for weight loss and cardiovascular health 4. Chronic low back pain, chronic, present on admission -continue Robaxin Code status:Full Surrogate decision maker: Karel Iraheta Son COVID PCR:Negative DVT/VTE prophylaxis: Lovenox and SCDs Disposition: Patient admitted for observation chest pain rule out risk stratification, expected length of stay less than 2 midnights. I have utilized all available immediate resources to obtain, update, or review the patient's current medications. I confirmed that the patient's advanced care plan is present, Code status is documented and/or surrogate decision maker is listed in the patient's medical record. Time Spent With Patient Critical Care time: I spent a total of [] minutes of critical care time on this patient's care today; this time is exclusive of procedural time. Quality VTE Deep Vein Thrombosis/Pulmonary Embolism Present on Admission: No
[2021-09-24] MEDS: ATORVASTATIN 20 MG TABLET 40 MG PO (20:02)
[2021-09-25 04:00] VITALS: BP 134/77; PULSE 89; RESP 17; TEMP 36.7; O2SAT 95; O2SAT 99
[2021-09-25 10:28] VITALS: BP 139/79; PULSE 97
[2021-09-25] MEDS: CELECOXIB 200 MG CAPSULE PO (10:28)
[2021-09-25] MEDS: ASPIRIN EC 81 MG TABLET PO (10:28)
[2021-09-25] MEDS: LOSARTAN 50 MG TABLET PO (10:28)
[2021-09-25] MEDS: ENOXAPARIN 40 MG/0.4 ML SYRINGE SUBCUT (10:30)
--- NOTE | 2021-09-25 11:23 | PC.NURSE ---
Assess- Patient down for stress test and back. She tolerated her breakfast well, states that she is not having any new chest pain. Area of discomfort is about the same to chest. Patient is awaiting results of test and may be discharged home later. Sitting at the side of the bed and resting.
[2021-09-25 11:29] VITALS: BP 146/69; PULSE 103; RESP 18; TEMP 36.5; O2SAT 97
--- NOTE | 2021-09-25 16:30 | PM.DS.1 ---
History of Present Illness History of Present Illness Date Patient Seen: 09/25/21 Chief complaint: sent for cardiac workup Narrative: Per Alysisa Honeycutt, [facility]-: Sandra Iraheta is a 66-year-old female with a medical history hypertension, arthritis, obesity, chronic back pain, arthritis, cataracts who presented to the ED today following the development of chest pain that started 4 days ago to the left side of her chest 4th 5th 6th intercostal spaces radiating to the left armpit and down the left arm, it is described as an achy pressure, she has had episodes diaphoresis, no shortness of breath, no changes in vision, had a headache all day yesterday, stress makes it worse, activity does not, rest does improve it. She does have swelling of her lower extremities specifically her feet but has not changed no swelling onset to her hands, denies numbness, tingling, balance or coordination issues, difficulty with speech, difficulty swallowing, upper respiratory symptoms, cough, fever, body aches, chills, abdominal pain, nausea, vomiting, diarrhea, recent illness, injury, trauma, or falls. The patient's chest pain resolved following nitro paste in the ED, though her blood pressure continued to increase, initially her blood pressure was 193/91 during admit exam in the ED patient's blood pressure was 200/96. Patient advised that she had not been taking her blood pressure medication for the past 3 weeks, and had only taken a dose today. Patient has had chronic back pain, and significant arthritis issues in the left ankle and left hip which have decreased her mobility, contributing to decreasing weight gain. Patient has a significant family history for coronary artery disease stroke, and bypass. Last stress test in 1999. Admit exam done in ED patient is calm relax in no distress and no shortness of breath chest pain has resolved. Vitals temp 97.9?, initial blood pressure 161/83 but then escalated to 200/96, HR 100, RR 18, O2 saturation 95% on room air. Patient's CBC and CMP with the exception of a glucose 139, AST 63 ALT 70, initial troponin and lipase are WNL. Patient's EKG sinus tachycardia at a rate of [address] or T-wave changes. Heart score: 4, patient's chest x-ray is negative for any acute cardiopulmonary process. Patient admitted for chest pain with hypertensive urgency. Discharge Providers Provider Date of admission: 09/23/21 20:39 Discharge Date: 09/25/21 Primary care physician: Leena Thomas MD Consults: 09/23/21 20:38 Consult to Dietitian, Adult Routine Comment: Reason For Exam: BMI 36.6 Discharge provider: Joni Gay DO Summary Hospital Course Discharge Diagnosis: 1. Chest pain with radiation to the left arm, acute, present on admission 2. Hypertensive urgency in the setting of essential hypertension present on admission 3. Obesity as evidence by BMI of 36.6, chronic, present on admission 4. Chronic low back pain, present on admission Hospital Course: Sandra Iraheta is a 66-year-old female with a medical history hypertension, obesity, chronic back pain, arthritis,? and cataracts who presented to the ED following the development of chest pain that started 4 days [employer] to the left side of her chest 4th 5th 6th intercostal spaces radiating to the left armpit and down the left arm, elevated B/P, and a significant family history for coronary artery disease, stroke, and bypass.? Her symptoms improved slightly over the course of admission, and on the day of discharge she had resolution in the morning but this returned when she got up and moved. She denied any diaphoresis or palpitations. Underwent echocardiogram which showed mild left ventricular hypertrophy, but no wall motion abnormalities and a normal ejection fraction. Nuclear stress Testing was performed which was normal. The patient's home blood pressure medications were changed slightly as a result of her hypertension in the emergency room, and her reporting leg swelling in the setting of amlodipine. At the time of discharge, her blood pressure was controlled with losartan 50 mg a day as well as hydrochlorothiazide 25 mg daily which the patient was already taking. Her home amlodipine was discontinued. Her chest pain likely represents a musculoskeletal cause after unremarkable nuclear stress testing, and she was provided with a prescription for Robaxin at the time of discharge. I recommend continued follow-up with her primary care provider for blood pressure management and obesity management. Exam Vital Signs (past 8 hours): - 09/25/21 10:28 09/25/21 10:45 09/25/21 11:29 Temperature 97.7 F Pulse Rate 97 H 103 H Respiratory Rate 18 Blood Pressure 139/79 146/69 H Pulse Oximetry 97 Oxygen Delivery Method Room Air Oxygen Flow Rate 0 09/25/21 14:11 Temperature Pulse Rate Respiratory Rate Blood Pressure Pulse Oximetry Oxygen Delivery Method Room Air Oxygen Flow Rate Oxygen Delivery Method Room Air Oxygen Flow Rate 0 Narrative Exam Narrative: Gen: No acute distress. CV: RRR Pulm: no respiratory distress, equal chest rise bilaterally Ext: No edema or joint effusions Objective Labs Result Diagrams: 09/23/21 19:30 09/23/21 19:30 [facility] Medical History Allergies Anemia (~1969) Ankle pain (~2019) Arthritis Asthma (~1986) Carpal tunnel syndrome (~1999) Chronic back pain (~2008) Colon polyps (~2004) Eczema (~1980) Foot pain (~2019) Hypertension (~2001) Recurrent sinusitis (~1994) Shoulder pain (~2008) Surgical History Anesthesia History of colonoscopy Family History Father Congestive heart failure Hypertension Hyperlipidemia Stroke History of heart attack Mother Cancer Brother Cancer Grandfather Cancer Grandmother Breast cancer Grandfather History of heart disease Grandmother History of heart disease Social History household members: spouse Smoking Status: Never smoker alcohol intake: never Discharge Plan Discharge Plan Patient Disposition: Home Provider Discharge Comment: You were admitted to the hospital with chest pain. Stress testing and echocardiogram were unremarkable. An additional muscle relaxant was prescribed for likely musculoskeletal pain, please follow up with your primary care provider before new BP medication refill for possible further adjustments. A new BP medication was prescribed to help with your leg swelling which can be common with amlodipine. Discharge orders & Medications Prescriptions: New methocarbamol 750 mg tablet 750 mg PO BID PRN (Reason: muscle spasm) 7 Days Qty: 14 0RF losartan 50 mg Tablet 50 mg PO DAILY 30 Days Qty: 30 0RF Continued celecoxib 200 mg capsule 200 mg PO DAILY Label Comments: take 1 capsule by mouth once daily if needed for pain hydrochlorothiazide 25 mg tablet 25 mg PO DAILY Label Comments: take 1 tablet by mouth every morning Discontinued methocarbamol 500 mg tablet 500 mg PO BID PRN (Reason: muscle spasm) Qty: 10 0RF amlodipine 5 mg tablet 5 mg PO DAILY Follow up/Referrals: Leena Thomas MD [Primary Care Provider] - Diet/Activity/Treatments Diet: Diet as Tolerated Activity: As tolerated Visit Report/Discharge Packet Instructions: DI for Chest Pain Discharge Data Primary Care Provider: Leena Thomas Attending Provider: Alyssia Honeycutt VTE Deep Vein Thrombosis/Pulmonary Embolism Present on Admission: No
--- NOTE | 2021-09-25 17:01 | DIET.CONS ---
Dietary Consultation Note Admission Date: 09/23/2021 20:39 Assessment: RD consult for BMI 36.6. OP nutrition counseling recommended. Ht: 165.1 cm Wt: 99.79 kg BMI: 36.6 Last BM: 09/23/21 (09/23/21 22:45) MNA: 14 Sergey Score: 23 Diet: 09/23/21 Breakfast Heart Healthy Diet Diet Modifications: Sodium Level: 2 gm Sodium Nutrition Percent Meal Consumed 100% 09/24/21 17:53 Percent Meal Consumed 100% 09/24/21 09:24 Labs: RBC 4.83 X10^6/uL (4.0-5.2) 09/23/21 19:30 Hgb 13.5 g/dL (12.0-16.0) 09/23/21 19:30 Hct 40.1 % (36-46) 09/23/21 19:30 Creatinine 0.78 mg/dL (0.52-1.04) 09/23/21 19:30 NT-Pro-B Natriuret Pep 26 pg/mL (<125) 09/23/21 19:30 Electronically Signed by: Sary Zepeda 09/25/21 17:01 Clinical Diet[address] [id number]
== END 2021-09-25 18:00 | disposition home or self-care (01) ==
LOC: ED 19:52 → AC 20:57
PROVIDERS: Admitting Provider Nurse Practitioner Family; Emergency Provider Emergency Medicine; PCP Family Medicine; Referring Provider Emergency Medicine; Visit Provider Nurse Practitioner Family
DX: R07.9 Chest pain, unspecified (principal); I16.0 Hypertensive urgency; R61 Generalized hyperhidrosis; I10 Essential (primary) hypertension; E66.9 Obesity, unspecified; Z68.36 Body mass index [BMI] 36.0-36.9, adult; G89.29 Other chronic pain; M54.50 Low back pain, unspecified; Z20.822 Contact with and (suspected) exposure to COVID-19
CPT/HCPCS: 36415; 71045; 78452; 80053; 80061; 82550; 83690; 83735; 83880; 84484; 85025; 85379; 85610; 87635; 93005; 93010; 93017; 93306; 96372; 99284; C9803; G0378; A9502; J1650

== ENCOUNTER → 2022-04-24 10:24 | Outpatient (CLI) | payer OTHER, SELFPAY ==
[2022-04-24 10:50] LABS: Add Manual Diff / Slide Review NO; Basophils Absolute Auto 0 /uL (0-100); Basophils Percent Auto 0.7 % (0-2); Eosinophils Absolute Auto 100 /uL (0-450); Eosinophils Percent Auto 1.6 % (2-4); Hematocrit 38.2 % (36-46); Lymphocytes Absolute Auto 1400 /uL (1100-4500); Lymphocytes Percent Auto 30.5 % (25-40); Mean Corpuscular HGB Conc 33.9 % (30-36); Mean Corpuscular Hemoglobin 28.8 PG (26-34); Mean Corpuscular Volume 85.1 fL (80-100); Monocytes Absolute Auto 400 /uL (0-900); Monocytes Percent Auto 8.6 % (3-14); Neutrophils Absolute Auto 2700 /uL (1500-7000); Neutrophils Percent Auto 58.6 % (50-75); Platelet Count 203 X10^3/uL (150-400); Red Blood Cell Count 4.49 X10^6/uL (4.0-5.2); Red Cell Distribution Width 14.7 % (11.6-14.8); White Blood Cell Count 4.7 X10^3/uL (4.5-11.0)
[2022-04-24 11:04] LABS: Hemoglobin A1C% w Est Avg Glu 6.9 % (4.0-6.0)
[2022-04-24 11:13] LABS: Alanine Aminotransferase 33 IU/L (<35); Albumin 4.1 g/dL (3.5-5.0); Albumin Globulin Ratio 1.2 (1.0-2.8); Alkaline Phosphatase 93 U/L (38-126); Aspartate Aminotransferase 31 IU/L (14-36); BUN Creatinine Ratio 25.4 (6-22); Bilirubin Total 0.5 mg/dL (0.2-1.3); Blood Urea Nitrogen 17 mg/dL (7-17); Calcium 8.7 mg/dL (8.4-10.2); Carbon Dioxide 29 mmol/L (22-32); Chloride 104 mmol/L (98-107); Estimated Glomerular Filt Rate > 60 mL/min (>60); Globulin 3.3 g/dL (1.7-4.1); Glucose 100 mg/dL (80-110); HEMOLYSIS < 15 (0-50); Potassium 3.9 mmol/L (3.4-5.1); Sodium 139 mmol/L (137-145); Total Protein 7.4 g/dL (6.3-8.2)
== END ==
LOC: RESP 10:27 → LAB 10:33
PROVIDERS: PCP Family Medicine; Referring Provider Orthopaedic Surgery Foot and Ankle Surgery; Visit Provider Orthopaedic Surgery Foot and Ankle Surgery
DX: Z01.812 Encounter for preprocedural laboratory examination (principal); R73.9 Hyperglycemia, unspecified
CPT/HCPCS: 36415; 80053; 83036; 85025